=== PATIENT | male | born 1965 ===

== ENCOUNTER 2017-01-07 16:25 | Emergency (ER) | payer OTHER ==
[2017-01-07 16:29] VITALS: PULSE 64; RESP 18; TEMP 98.6; O2SAT 100
[2017-01-07 16:30] VITALS: BP 124/75
--- NOTE | 2017-01-07 17:06 | C.PDOC ---
History Of Present Illness 51 yo male come in for evaluation of lower back pain gradually developed for past few days. Pt reports, " lift heavy weight at work". Pain is localized, non- radiating and worse with movement. Otherwise, pt denies known trauma or injury, fever, chills, abd. pain, N/V/D, UTI sx, saddle anesthesia, incontinence, denies weakness, sensory or vascular deficits to B/L lEs. Ambulate to ED for evaluation, not in any apparent distress. Time Seen by Provider: 01/07/17 16:36 Chief Complaint (Nursing): Back Pain History Per: Patient Onset/Duration Of Symptoms: Gradual Current Symptoms Are (Timing): Still Present Past Medical History Reviewed: Historical Data, Nursing Documentation, Vital Signs Vital Signs: Last Vital Signs Temp 98.6 F 01/07/17 16:27 Pulse 64 01/07/17 16:27 Resp 18 01/07/17 16:27 BP 124/75 01/07/17 16:27 Pulse Ox 100 01/07/17 17:11 - Medical History PMH: No Chronic Diseases Surgical History: No Surg Hx Family History: States: No Known Family Hx - Social History Hx Alcohol Use: No Hx Substance Use: No Review Of Systems Except As Marked, All Systems Reviewed And Found Negative. Constitutional: Negative for: Fever, Chills ENT: Negative for: Throat Pain Cardiovascular: Negative for: Chest Pain Respiratory: Negative for: Cough Gastrointestinal: Negative for: Nausea, Vomiting, Abdominal Pain, Diarrhea Genitourinary: Negative for: Dysuria, Incontinence Musculoskeletal: Positive for: Back Pain. Negative for: Neck Pain Skin: Negative for: Rash Neurological: Negative for: Weakness, Numbness, Altered Mental Status, Headache , Dizziness Physical Exam - Physical Exam Appears: Well, Non-toxic, No Acute Distress Skin: Normal Color, Warm, Dry, No Rash Eye(s): bilateral: PERRL Nose: No Discharge Oral Mucosa: Moist Throat: No Erythema Neck: Supple Cardiovascular: Rhythm Regular Respiratory: No Decreased Breath Sounds, No Accessory Muscle Use, No Stridor, No Wheezing Gastrointestinal/Abdominal: No Tenderness, No Distention, No Guarding Back: No CVA Tenderness, No Vertebral Tenderness, Decreased ROM (L-spine due to pain), Muscle Spasm (lumbar paraspinal), Paraspinal Tenderness (diffuse lumbar, no midine tenderness, no skin changes.) Extremity: No Pedal Edema, No Deformity, No Swelling Neurological/Psych: Oriented x3, Normal Speech, Normal Motor, Normal Sensation, Normal Reflexes ED Course And Treatment O2 Sat by Pulse Oximetry: 100 Pulse Ox Interpretation: Normal - Other Rad L-spine X-Ray: Interpreted by Me, Viewed By Me Interpretation: no acute fx or sublux Progress Note: On re-evaluation, pt is afebrile, hemodynamicaly stable. Non- toxic. AMbulatory in ED with stable gait. PUlseOx 100% RA. ENT: no acute findings. Neck: Supple. Lungs: CTA B/L, BS equal B/L. ABd: benign, (-) guarding, (-) rebound. Back: (-) CVA tenderness. Neuorlogicaly intact. L- spine xray- no acute findings. PT has clinical findings c/w low back strain. Pt advised. ref. to f/u with PMD in 2-3 days for re-eavl. return if any new changes. Disposition Counseled Patient/Family Regarding: Studies Performed, Diagnosis, Need For Followup, Rx Given - Disposition Referrals: [facility] [Outside] Disposition: HOME/ ROUTINE Disposition Time: 17:40 Condition: STABLE Additional Instructions: Light duty, avoid heavy lifting, bending forward, etc for 1 week Take medication as prescribed Follow up with PMD In 2-3 days for re-evaluation. Return to ED if any worsening or new changes. Prescriptions: Ibuprofen [Motrin Tab] 600 mg PO Q6 #20 tab Methocarbamol [Robaxin] 500 mg PO TID #14 tab traMADol [Ultram] 50 mg PO TID #7 tab Instructions: Back Pain (ED) Forms: [employer] (Emirati) Print Language: [place]LAND[place] - Clinical Impression Clinical Impression: Low back strain
--- NOTE | 2017-01-07 18:00 | RAD ---
PROCEDURE: Radiographs of the Lumbar Spine. HISTORY: pain COMPARISON: No prior. FINDINGS: BONES: Normal alignment. No listhesis. No fracture. DISC SPACES: [id number] multilevel lumbar spondylosis is identified. No definite disc height loss appreciated throughout. OTHER FINDINGS: None. 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 No fracture or spondylolisthesis identified.
== END 2017-01-07 17:54 | disposition home or self-care (01) ==
LOC: C.ER 16:25
DX: S39.012A Strain of muscle, fascia and tendon of lower back, initial encounter (principal); X50.0XXA Overexertion from strenuous movement or load, initial encounter; Y93.89 Activity, other specified; Y92.89 Other specified places as the place of occurrence of the external cause; Y99.8 Other external cause status

== ENCOUNTER 2018-08-06 12:05 | Emergency (ER) | payer OTHER ==
[2018-08-06 12:22] VITALS: BMI 25.7
--- NOTE | 2018-08-06 13:47 | C.PDOC ---
History Of Present Illness 52 y/o male presents to the ED complaining of a 3 week history of pain to the left upper back, which today began radiating to the left anterior chest. Pain is worse today, and constant. Patient reports the back pain is exacerbated when turning his head to the left. He describes the chest pain as pleuritic. Patient reports taking Tylenol with minimal relief prior to arrival. Otherwise he denies any SOB, dizziness, TELLO, nausea, vomiting, abdominal pain, diaphoresis, or leg pain/swelling. Time Seen by Provider: 08/06/18 13:08 Chief Complaint (Nursing): Chest Pain History Per: Patient History/Exam Limitations: no limitations Onset/Duration Of Symptoms: Days Current Symptoms Are (Timing): Still Present Past Medical History Reviewed: Historical Data, Nursing Documentation, Vital Signs Vital Signs: Last Vital Signs Temp 99.4 F 08/06/18 12:24 Pulse 70 08/06/18 13:21 Resp 18 08/06/18 12:24 BP 129/78 08/06/18 12:24 Pulse Ox 98 08/06/18 12:24 - Medical History PMH: No Chronic Diseases Surgical History: No Surg Hx Family History: States: No Known Family Hx - Social History Hx Tobacco Use: No Hx Alcohol Use: No Hx Substance Use: No - Immunization History Hx Tetanus Toxoid Vaccination: No Hx Influenza Vaccination: No Hx Pneumococcal Vaccination: No Review Of Systems Except As Marked, All Systems Reviewed And Found Negative. Constitutional: Negative for: Fever, Chills Eyes: Negative for: Vision Change Cardiovascular: Positive for: Chest Pain. Negative for: Palpitations Respiratory: Positive for: Pleuritic Pain. Negative for: Cough, Shortness of Breath, SOB with Excertion Gastrointestinal: Negative for: Nausea, Vomiting, Abdominal Pain Genitourinary: Negative for: Dysuria, Hematuria Musculoskeletal: Positive for: Back Pain. Negative for: Neck Pain Skin: Negative for: Rash Neurological: Negative for: Weakness, Numbness Physical Exam - Physical Exam Appears: Non-toxic, No Acute Distress Skin: Warm, Dry, No Rash Head: Atraumatic, Normacephalic Eye(s): bilateral: Normal Inspection, PERRL, EOMI Oral Mucosa: Moist Neck: Trachea Midline, Supple Chest: Symmetrical, No Tenderness (no reproducible pain) Cardiovascular: Rhythm Regular, No Murmur Respiratory: Normal Breath Sounds, No Rales, No Rhonchi, No Wheezing Gastrointestinal/Abdominal: Soft, No Tenderness, No Distention Back: Other (Reproducible pain to the left upper back and trapezius w/ left lateral rotation) Extremity: Bilateral: Atraumatic, Normal Color And Temperature, Normal ROM Neurological/Psych: Oriented x3, Normal Speech ED Course And Treatment ECG: Interpreted By Me, Viewed By Me ECG Rhythm: Sinus Rhythm ECG Interpretation: No Acute Changes Rate From EC O2 Sat by Pulse Oximetry: 98 Pulse Ox Interpretation: Normal - Radiology CXR: Interpreted by Me CXR Interpretation: Yes: No Acute Disease Medical Decision Making Medical Decision Making: Impression: Likely musculoskeletal pain Plan: - Chest x-ray - 600 mg PO Motrin - 10 mg PO Flexeril Disposition Counseled Patient/Family Regarding: Studies Performed, Diagnosis, Need For Followup, Rx Given - Disposition Referrals: [facility] [Outside] [facility] [Outside] Disposition: HOME/ ROUTINE Disposition Time: 14:21 Condition: IMPROVED Prescriptions: Cyclobenzaprine [Flexeril] 10 mg PO TID #15 tab Ibuprofen [Motrin] 600 mg PO Q6 #30 tab Instructions: Upper Back Pain (DC) Forms: [employer] (Burmese) Print Language: FILIPINO - Clinical Impression Clinical Impression: Upper back pain, Chest wall pain - Scribe Statement The provider has reviewed the documentation as recorded by the Moody Hutson Provider Attestation: All medical record entries made by the Klausibanabel were at my direction and personally dictated by me. I have reviewed the chart and agree that the record accurately reflects my personal performance of the history, physical exam, medical decision making, and the department course for this patient. I have also personally directed, reviewed, and agree with the discharge instructions and disposition.
[2018-08-06 14:45] VITALS: BP 120/74; PULSE 65; RESP 16; TEMP 98.5; O2SAT 97
--- NOTE | 2018-08-06 15:43 | RAD ---
HISTORY: chest back pain COMPARISON: None available. TECHNIQUE: Chest PA and lateral FINDINGS: LUNGS: No focal consolidation. Please note that chest x-ray has limited sensitivity for the detection of pulmonary masses. PLEURA: No significant pleural effusion identified. No definite pneumothorax . CARDIOVASCULAR: Heart size appears within normal limits. Faint atherosclerotic calcifications present. OSSEOUS STRUCTURES: Degenerative changes of the spine VISUALIZED UPPER ABDOMEN: Unremarkable. OTHER FINDINGS: None. IMPRESSION: No focal consolidation.
--- NOTE | 2018-08-08 06:39 | CARD ---
APPROVED REPORT Date of service: 08/06/2018 EKG Measurement Heart [id number] <Conclusion> Normal sinus rhythm Normal ECG
== END 2018-08-06 14:48 | disposition home or self-care (01) ==
LOC: C.ER 12:05
DX: M54.89 Other dorsalgia (principal); R07.89 Other chest pain